=== PATIENT | female | born 1980 | race Caucasian/White ===

== ENCOUNTER 2017-11-04 04:57 | Emergency (ER) | payer OTHER ==
[~2017-11-04] VITALS: Ht 167.6 cm; Wt 81.6 kg
--- NOTE | 2017-11-04 04:57 | NUR ---
Patient to ER bed 6 to gown for evaluation. Side rails up.
[2017-11-04 04:59] VITALS: BP_SYST 146
--- NOTE | 2017-11-04 05:00 | NUR ---
Patient brought to ER by [facility] C/O waking up with RLQ abdominal pain 2-8 radiating to pelvis and lower back, sharp in nature. Also C/O nausea and the feeling of passing out. Patient had D&C 10/29 for miscariage of 9.5 week . Also states that she is taking nitrofurantoin for UTI. Denies vomiting/diarrhea/constipation, AAOx4, unlabored breathing, no signs of acute distress.
--- NOTE | 2017-11-04 05:04 | NUR ---
ER MD Nelson at bedside evaluating the patient
[2017-11-04] MEDS ORDERED: NACL 0.9% 1,000 ML IV ONE (05:15)
--- NOTE | 2017-11-04 05:30 | NUR ---
# 22 gauge angiocath placed to left hand. Use of asceptic technique. Opsite placed over site. Blood return noted. Blood for lab drawn from site. Flushed with 10 cc of normal saline. No evidence of infiltration noted. Patient tolerated well.
[2017-11-04 05:34] LABS: BILIRUBIN,URINE NEGATIVE (NEGATIVE); BLOOD, URINE 3+ (NEGATIVE); CLARITY/URINE CLOUDY (CLEAR); COLOR,URINE RED (YELLOW); GLUCOSE,URINE NEGATIVE (NEGATIVE); KETONES,URINE NEGATIVE (NEGATIVE); LEUKOCYTE ESTERASE ,URINE 2+ (NEGATIVE); NITRITE, URINE NEGATIVE (NEGATIVE); PROTEIN URINE 2+ (NEGATIVE)
[2017-11-04 05:40] LABS: BACTERIA,URINE MODERATE /HPF (None Seen); RBC,URINE >100 /HPF (0-3); WBC,URINE >100 /HPF (0-3)
[2017-11-04 05:55] LABS: BASOPHILS # (AUTO) 0.1 K/uL (0.0-0.2); BASOPHILS % (AUTO) 1.7 % (0.0-2.0); EOSINOPHILS # (AUTO) 0.1 K/uL (0.0-0.4); EOSINOPHILS % (AUTO) 1.9 % (0.0-4.0); HEMATOCRIT 38.2 % (36-48); HEMOGLOBIN 12.8 g/dL (12.0-16.0); LYMPHOCYTES # (AUTO) 1.4 K/uL (1.0-5.5); LYMPHOCYTES % (AUTO) 32.3 % (20.5-51.5); MEAN CORPUSCULAR HEMOGLOBIN 32 pg (27-31); MEAN CORPUSCULAR HGB CONC 34 % (32-36); MEAN CORPUSCULAR VOLUME 95 fL (79.0-98.0); MONOCYTES # (AUTO) 0.4 K/uL (0.0-1.0); MONOCYTES % (AUTO) 9.2 % (1.7-9.3); NEUTROPHILS # (AUTO) 2.4 K/uL (1.8-7.7); NEUTROPHILS % (AUTO) 54.9 % (40.0-70.0); PLATELET COUNT (AUTO) 146 K/uL (130-430); RED BLOOD CELL COUNT(AUTO) 4.03 MIL/uL (4.2-6.2); WHITE BLOOD COUNT (AUTO) 4.4 K/uL (4.8-10.8)
[2017-11-04 06:04] LABS: CALCIUM 9.1 mg/dL (8.4-11.0); CREATININE 0.65 mg/dL (0.55-1.30); POTASSIUM 3.6 mmol/L (3.5-5.1)
[2017-11-04 06:08] LABS: ALBUMIN 3.8 g/dL (3.4-4.8); TOTAL BILIRUBIN 0.3 mg/dL (0.0-1.0)
--- NOTE | 2017-11-04 06:10 | NUR ---
Patient off the unit for US via wheelchair.
[2017-11-04] MEDS ORDERED: cefTRIAXone 1 GM IVPB PREMIX 50 ML IV ONE (06:45)
--- NOTE | 2017-11-04 07:10 | NUR ---
Pt on stable condition, VS WNL, respirations even and unlabored
[2017-11-04 07:36] VITALS: BP_SYST 115
--- NOTE | 2017-11-04 07:41 | NUR ---
Patient given written and verbal discharge instructions and verbalizes understanding. ER MD discussed with patient the results and treatment provided. Patient in stable condition. ID arm band removed. IV catheter removed intact and dressing applied, no active bleeding. Rx of [place] and Cipro given. Patient educated on pain management and to follow up with PMD. Pain Scale 0/10 Opportunity for questions provided and answered. Medication side effect fact sheet provided.
== END 2017-11-04 07:41 | disposition home or self-care (01) ==
LOC: SED 04:57
DX: N39.0 Urinary tract infection, site not specified (principal); I10 Essential (primary) hypertension; Z88.2 Allergy status to sulfonamides
CPT/HCPCS: 36415; 76856; 80053; 81000; 83690; 85025; 87086; 96365; 99285; J0696; J7030